=== PATIENT | female | born 1995 | race Caucasian/White ===

== ENCOUNTER 2020-06-06 00:57 | Emergency (ER) | payer BC ==
[2020-06-06] MEDS ORDERED: ALBUTEROL SO4 2.5/IPRATROPIUM 0.5 INH SOL 3 ML VIAL.NEB. NEB ONE (01:06)
[2020-06-06] MEDS ORDERED: MAGNESIUM SULFATE IN WATER 2 GM/50 ML IVPB IVPB ONE (01:06)
[2020-06-06] MEDS ORDERED: DEXAMETHASONE SOD PHOSPHATE 10 MG/1 ML VIAL ONE (01:06)
[2020-06-06 01:10] VITALS: BP 120/86; PULSE 106; TEMP 99.3; BMI 20.9
[2020-06-06] MEDS: ALBUTEROL SO4 2.5/IPRATROPIUM 0.5 INH SOL 3 ML VIAL.NEB. NEB SCH ×2 (01:27→01:46)
[2020-06-06 02:57] LABS: BASO % 0.3 % (0-2.0); EOS % 0.2 % (0-4.5); HEMATOCRIT 40.4 % (32.4-45.2); HEMOGLOBIN 13.1 GM/dL (10.7-15.3); LYMPH % 8.4 % (8-40); MCHC 32.3 g/dl (32.0-36.0); MEAN CELL VOLUME 89.8 fl (80-96); MEAN PLT VOLUME 9.2 fl (7.5-11.1); MONO % 1.3 % (3.8-10.2); NEUT % 89.8 % (42.8-82.8); PLATELET COUNT 240 K/MM3 (134-434); RDW 13.7 % (11.6-15.6); WHITE BLOOD COUNT 11.2 K/mm3 (4.0-10.0)
[2020-06-06 03:17] LABS: POTASSIUM 3.9 mmol/L (3.5-5.1)
[2020-06-06 03:19] LABS: CALCIUM 8.5 mg/dL (8.5-10.1)
[2020-06-06 03:20] LABS: ALBUMIN 4.2 g/dl (3.4-5.0); BLOOD UREA NITROGEN 12.4 mg/dL (7-18)
[2020-06-06 03:25] LABS: BILIRUBIN,TOTAL 0.2 mg/dL (0.2-1); TOT PROT 8.3 g/dl (6.4-8.2)
[2020-06-06] MEDS ORDERED: ALBUTEROL SO4 HFA INHALER IH ONE ×2 (03:46→03:54)
== END 2020-06-06 03:56 | disposition home or self-care (01) ==
LOC: JER 00:57
PROC: 3E0F7GC Introduction of Other Therapeutic Substance into Respiratory Tract, Via Natural or Artificial Opening (ICD-10-PCS; principal; 2020-06-06)
DX: J45.901 Unspecified asthma with (acute) exacerbation (principal)
CPT/HCPCS: 36415; 80053; 80307; 84703; 85025; 93005; 93010; 99285-25